=== PATIENT | female | born 1940 | race Caucasian/White ===

== ENCOUNTER 2020-08-20 11:49 | Observation (INO) ==
[2020-08-20 12:55] LABS: ABS Basophils 0.1 10^3/ul (0-0.2); ABS Eosinophils 0.2 10^3/ul (0-0.6); ABS Lymphocytes 2.3 10^3/ul (1.0-4.8); ABS Monocytes 0.8 10^3/ul (0-0.8); ABS Neutrophils 5.5 10^3/ul (1.5-7.7); Eosinophil % 1.9 %; Hematocrit 45 % (35-47); Hemoglobin 14.9 g/dL (12.0-16.0); Lymphocyte % 26.3 %; Mean Corpuscular HGB Conc 33 g/dL (31-36); Mean Corpuscular Hemoglobin 32 pg (27-31); Mean Corpuscular Volume 96 fL (80-97); Mean Platelet Volume 8.9 fL (7.4-10.4); Nucleated Red Blood Cells % 0.1; Platelet Count 284 10^3/uL (150-450); Red Blood Count 4.69 10^6 /uL (3.70-4.87); Red Cell Distribution Width 14 % (10-15); White Blood Count 8.7 10^3/uL (3.5-10.8)
[2020-08-20 12:56] LABS: INR 1.27 (0.82-1.09)
[2020-08-20 13:09] LABS: Albumin/Globulin Ratio 1.2 (1-3); BUN/Creatinine Ratio 14.9 (8-20); Calcium 9.4 mg/dL (8.6-10.3); EGFR African American 90.9 (>60); EGFR Non-African American 75.1 (>60); Globulin 3.4 g/dL (2-4); Total Bilirubin 0.6 mg/dL (0.2-1.0); Total Protein 7.4 g/dL (6.4-8.9)
[2020-08-20 13:11] LABS: Troponin I 0.01 ng/mL (<0.03)
[2020-08-20] MEDS ORDERED: Ondansetron 4 mg VIAL 2 MG/ML 2 ml VIAL IV PRN (13:56)
[2020-08-20 14:39] LABS: C Reactive Protein 22.95 mg/L (<8.01)
[2020-08-20] MEDS: Aspirin EC 81 mg TAB.EC (enteric coated) PO SCH (15:26)
[2020-08-20 15:41] LABS: Erythrocyte Sed Rate 17 mm/Hr (0-29)
[2020-08-20] MEDS: CMCS: Dabigatran 150 mg CAP (NF) PO SCH (22:54)
[2020-08-21 06:32] LABS: ABS Eosinophils 0.2 10^3/ul (0-0.6); ABS Lymphocytes 2.4 10^3/ul (1.0-4.8); ABS Monocytes 0.7 10^3/ul (0-0.8); ABS Neutrophils 3.8 10^3/ul (1.5-7.7); Eosinophil % 3.3 %; Hematocrit 40 % (35-47); Hemoglobin 13.7 g/dL (12.0-16.0); Lymphocyte % 33.7 %; Mean Corpuscular HGB Conc 35 g/dL (31-36); Mean Corpuscular Hemoglobin 33 pg (27-31); Mean Corpuscular Volume 95 fL (80-97); Platelet Count 256 10^3/uL (150-450); Red Blood Count 4.18 10^6 /uL (3.70-4.87); Red Cell Distribution Width 13 % (10-15); White Blood Count 7.1 10^3/uL (3.5-10.8)
[2020-08-21 06:56] LABS: BUN/Creatinine Ratio 16.7 (8-20); C Reactive Protein 35.49 mg/L (<8.01); Calcium 8.6 mg/dL (8.6-10.3); EGFR African American 103.7 (>60); EGFR Non-African American 85.7 (>60); HDL Cholesterol 38.5 mg/dL; Potassium 4.1 mmol/L (3.5-5.0)
[2020-08-21] MEDS: Aspirin EC 81 mg TAB.EC (enteric coated) PO SCH (09:30)
[2020-08-21] MEDS: Vitamin THERAPEUTIC TAB PO SCH (09:30)
[2020-08-21] MEDS: CMCS: Dabigatran 150 mg CAP (NF) PO SCH ×2 (09:31→21:49)
[2020-08-22 06:54] LABS: Hematocrit 39 % (35-47); Hemoglobin 13.4 g/dL (12.0-16.0); Mean Corpuscular HGB Conc 35 g/dL (31-36); Mean Corpuscular Hemoglobin 33 pg (27-31); Mean Corpuscular Volume 94 fL (80-97); Platelet Count 267 10^3/uL (150-450); Red Blood Count 4.09 10^6 /uL (3.70-4.87); Red Cell Distribution Width 13 % (10-15); White Blood Count 7.7 10^3/uL (3.5-10.8)
[2020-08-22 06:59] LABS: BUN/Creatinine Ratio 17.7 (8-20); C Reactive Protein 22.95 mg/L (<8.01); Calcium 8.5 mg/dL (8.6-10.3); EGFR African American 111.5 (>60); EGFR Non-African American 92.2 (>60); Potassium 4.2 mmol/L (3.5-5.0)
[2020-08-22] MEDS: Aspirin EC 81 mg TAB.EC (enteric coated) PO SCH (08:29)
[2020-08-22] MEDS: CMCS: Dabigatran 150 mg CAP (NF) PO SCH (08:29)
[2020-08-22] MEDS: Vitamin THERAPEUTIC TAB PO SCH (08:29)
[2020-08-22 09:09] LABS: Erythrocyte Sed Rate 20 mm/Hr (0-29)
[2020-08-22 09:29] VITALS: BP 112/70
== END 2020-08-22 10:45 | disposition home or self-care (01) ==
LOC: MEDTELE 11:49 → ED 11:49 → MEDTELE 15:06
PROVIDERS: ADMIT Student in an Organized Health Care Education/Training Program; ATTEND Internal Medicine